=== PATIENT | female | born 1975 ===

== ENCOUNTER 2021-09-30 13:08 | Inpatient (IN) ==
[2021-09-30] MEDS ORDERED: LACTATED RINGERS 1,000 ML IV ONE (16:27)
[2021-09-30] MEDS ORDERED: GLUCAGON 1 MG VIAL IM PRN (16:29)
[2021-09-30] MEDS ORDERED: DEXTROSE 10% 250 ML BAG IV PRN (16:33)
[2021-09-30] MEDS: LABETALOL 200 MG TABLET PO SCH (17:29)
[2021-09-30 18:45] LABS: Protein/Creatinine Ratio,Urine 2.4 RATIO
[2021-09-30 18:53] LABS: Basophils % 0.3 % (0.0-0.8); Eosinophils % 0.5 % (0.00-10.9); Hematocrit 40.1 VOL% (35.7-47.0); Hemoglobin 13.5 GM/DL (12.0-16.0); Immature Granulocytes % 0.3 %; Immature Granulocytes Absolute 0.02 #; Lymphocytes # 2.1 10*3/uL (1.4-4.0); Lymphocytes % 33.7 % (21.3-54.2); Mean Corpuscular HGB Conc 33.7 GM/DL (32-36); Mean Corpuscular Volume 91.1 FL (87-102); Mean Platelet Volume 11.2 FL (9.6-12.0); Monocytes % 5.6 % (1.7-12.7); Neutrophils % 59.6 % (38.7-73.9); Platelet Count 127 T/CUMM (130-400); Red Cell Distribution Width 14.9 % (9.3-17.3); White Blood Count 6.1 T/CUMM (4-12)
[2021-09-30 19:17] LABS: Albumin 2.2 G/DL (3.4-5.0); Bilirubin,Direct 0.16 MG/DL (0.0-0.20); Bilirubin,Total 0.4 MG/DL (0.20-1.00); Calcium 8.8 MG/DL (8.5-10.1); Osmolality,Calculated 278.3 MOS/KG (273-304); Potassium 4.1 MMOL/L (3.5-5.1); Total Protein 6.5 G/DL (6.4-8.2); Uric Acid 5.9 MG/DL (2.6-6.0)
[2021-09-30 20:19] LABS: INR 0.9; PT Patient Result 10.4 SECS (10.5-12.0); Partial Thromboplastin Time 29.6 SECS (23.8-32.1)
[2021-09-30] MEDS: LACTATED RINGERS 1,000 ML IV SCH (20:23)
[2021-09-30] MEDS ORDERED: LABETALOL 100 MG TABLET PO SCH (21:00)
[2021-10-01] MEDS: LABETALOL 200 MG TABLET PO SCH ×2 (09:05→20:58)
[2021-10-01] MEDS ORDERED: NIFEdipine 10 MG CAPSULE PO ONE ×3 (09:26→09:54)
[2021-10-01] MEDS: LACTATED RINGERS 1,000 ML IV SCH (10:22)
[2021-10-01] MEDS ORDERED: ACETAMINOPHEN 500 MG TABLET PO PRN (17:07)
[2021-10-02] MEDS: LABETALOL 200 MG TABLET PO SCH ×2 (08:33→21:02)
[2021-10-02] MEDS ORDERED: NIFEdipine 10 MG CAPSULE PO ONE (19:48)
[2021-10-03] MEDS ORDERED: CITRIC ACID/SODIUM CITRATE 30 ML UDCUP PO ONE ×2 (06:00→07:30)
[2021-10-03] MEDS ORDERED: ceFAZolin 3,000 MG in SYRINGE 1 EACH IV ONE ×2 (06:00→07:30)
[2021-10-03] MEDS ORDERED: FAMOTIDINE 20 MG/2 ML VIAL IV ONE ×2 (06:00→07:30)
[2021-10-03] MEDS: LACTATED RINGERS 1,000 ML IV SCH (06:27)
[2021-10-03 06:52] LABS: Basophils % 0.3 % (0.0-0.8); Eosinophils % 0.7 % (0.00-10.9); Hematocrit 38.6 VOL% (35.7-47.0); Immature Granulocytes % 0.3 %; Immature Granulocytes Absolute 0.02 #; Lymphocytes # 2.1 10*3/uL (1.4-4.0); Mean Corpuscular HGB Conc 33.7 GM/DL (32-36); Mean Corpuscular Volume 91.3 FL (87-102); Mean Platelet Volume 10.9 FL (9.6-12.0); Monocytes % 6.2 % (1.7-12.7); Neutrophils % 56.5 % (38.7-73.9); Platelet Count 123 T/CUMM (130-400); Red Blood Count 4.23 MC/CUMM (3.8-5.5); White Blood Count 5.8 T/CUMM (4-12)
[2021-10-03 06:58] LABS: INR 0.9; PT Patient Result 10.4 SECS (10.5-12.0); Partial Thromboplastin Time 29.2 SECS (23.8-32.1)
[2021-10-03 07:31] LABS: Albumin 2.1 G/DL (3.4-5.0); Bilirubin,Direct 0.18 MG/DL (0.0-0.20); Bilirubin,Total 0.6 MG/DL (0.20-1.00); Calcium 8.2 MG/DL (8.5-10.1); Osmolality,Calculated 276.5 MOS/KG (273-304); Potassium 3.9 MMOL/L (3.5-5.1); Total Protein 6.6 G/DL (6.4-8.2)
[2021-10-03] MEDS ORDERED: OXYTOCIN 10 UNIT/ML VIAL IM ONE (07:35)
[2021-10-03] MEDS ORDERED: OXYTOCIN/LR 30 UNIT/1,000 ML BAG IV ONE ×2 (07:35→10:08)
[2021-10-03 07:38] LABS: Anisocytosis Slight; Macrocytosis Slight; Platelet Estimate Adequate
[2021-10-03] MEDS ORDERED: ceFAZolin 2,000 MG/50 ML DUPLEX IV ONE (08:08)
[2021-10-03] MEDS ORDERED: miSOPROStoL 200 MCG TABLET ONE (08:31)
[2021-10-03] MEDS ORDERED: TRANEXAMIC ACID 1,000 MG/10 ML VIAL ONE (08:31)
[2021-10-03] MEDS ORDERED: SODIUM CHLORIDE 0.9% 0 ML IV ONE (08:31)
[2021-10-03] MEDS ORDERED: OXYTOCIN/LR 0 UNIT/0 ML BAG IV ONE (08:31)
[2021-10-03] MEDS ORDERED: CARBOPROST TROMETHAMINE 250 MCG/ML AMP IM ONE (08:32)
[2021-10-03] MEDS ORDERED: BUPIVACAINE SPINAL 0.75% 2 ML AMP SPINAL ONE (08:49)
[2021-10-03] MEDS ORDERED: ONDANSETRON 4 MG/2 ML VIAL ONE (09:17)
[2021-10-03] MEDS ORDERED: PHENYLEPHRINE 1 MG/10 ML SYRINGE IV ONE (09:24)
[2021-10-03] MEDS ORDERED: MIDAZOLAM 2 MG/2 ML VIAL ONE (09:28)
[2021-10-03 09:37] LABS: Cord Arterial Blood HCO3 19.6 MMOL/L
[2021-10-03 09:40] LABS: Cord Venous Blood HCO3 20.8 MMOL/L; Cord Venous Blood PCO2 48.4 MMHG; Cord Venous Blood PO2 24.2
[2021-10-03 09:42] LABS: Bacteria,Urine Occasional /HPF (Few); Mucus,Urine Occasional /LPF (Occasional); RBC,Urine 1 /HPF (0-4); Squamous Epithelial Cell,Urine Occasional /HPF (0-10)
[2021-10-03 09:44] LABS: Protein,Urine 100 mg/dL (Negative); Urine Appearance Clear (Clear); Urine Color Yellow (Yellow)
[2021-10-03 09:45] LABS: Bilirubin,Urine Negative (Negative); Blood, Urine Negative (Negative); Glucose,Urine (UA) Negative (Negative); Ketones,Urine Negative (Negative); Nitrite,Urine Negative (Negative)
[2021-10-03] MEDS ORDERED: LABETALOL 20 MG/4 ML SYRINGE IV ONE (10:09)
[2021-10-03] MEDS ORDERED: CALCIUM CHLORIDE 1,000 MG/10 ML VIAL IV ONE (10:09)
[2021-10-03] MEDS ORDERED: DEXTROSE 10% 250 ML BAG IV PRN (10:41)
[2021-10-03] MEDS ORDERED: OXYTOCIN/LR 20 UNIT/1,000 ML BAG IV ONE (10:41)
[2021-10-03] MEDS ORDERED: ONDANSETRON 4 MG/2 ML VIAL IV PRN (10:41)
[2021-10-03] MEDS ORDERED: SIMETHICONE CHEW 80 MG TABLET PO PRN (10:41)
[2021-10-03] MEDS ORDERED: ACETAMINOPHEN 325 MG TABLET PO PRN (10:41)
[2021-10-03] MEDS ORDERED: RHO(D) IMMUNE GLOBULIN 300 MCG SYRINGE IM ONE (10:41)
[2021-10-03] MEDS ORDERED: MAGNESIUM HYDROXIDE SUSP 30 ML UDCUP PO PRN (10:41)
[2021-10-03] MEDS ORDERED: GLUCAGON 1 MG VIAL IM PRN (10:41)
[2021-10-03] MEDS ORDERED: LACTATED RINGERS 1,000 ML IV SCH (11:00)
[2021-10-03] MEDS: ACETAMINOPHEN 500 MG TABLET PO SCH ×2 (13:17→21:49)
[2021-10-03] MEDS: KETOROLAC 30 MG/1 ML VIAL IV SCH ×2 (15:50→21:47)
[2021-10-03 18:41] LABS: Basophils # 0.1 10*3/uL (0.0-0.2); Basophils % 0.4 % (0.0-0.8); Eosinophils % 0.1 % (0.00-10.9); Hematocrit 33.6 VOL% (35.7-47.0); Hemoglobin 11.4 GM/DL (12.0-16.0); Immature Granulocytes % 0.4 %; Immature Granulocytes Absolute 0.05 #; Lymphocytes # 1.9 10*3/uL (1.4-4.0); Lymphocytes % 14.1 % (21.3-54.2); Mean Corpuscular HGB Conc 33.9 GM/DL (32-36); Mean Corpuscular Volume 90.6 FL (87-102); Mean Platelet Volume 10.4 FL (9.6-12.0); Monocytes % 4.9 % (1.7-12.7); Neutrophils % 80.1 % (38.7-73.9); Platelet Count 127 T/CUMM (130-400); Red Blood Count 3.71 MC/CUMM (3.8-5.5); Red Cell Distribution Width 14.8 % (9.3-17.3); White Blood Count 13.5 T/CUMM (4-12)
[2021-10-03] MEDS: DOCUSATE SODIUM 100 MG CAPSULE PO SCH (21:34)
[2021-10-04] MEDS ORDERED: DEXTROSE 50% 25 GM/50 ML VIAL IV PRN (00:38)
[2021-10-04] MEDS ORDERED: GLUCAGON 1 MG VIAL IM PRN (00:38)
[2021-10-04] MEDS: KETOROLAC 30 MG/1 ML VIAL IV SCH (03:22)
[2021-10-04] MEDS: ACETAMINOPHEN 500 MG TABLET PO SCH ×2 (04:12→07:30)
[2021-10-04 06:01] LABS: Basophils % 0.3 % (0.0-0.8); Eosinophils # 0.1 10*3/uL (0.0-0.87); Eosinophils % 0.4 % (0.00-10.9); Hematocrit 33.1 VOL% (35.7-47.0); Immature Granulocytes % 0.3 %; Immature Granulocytes Absolute 0.04 #; Lymphocytes # 3.1 10*3/uL (1.4-4.0); Lymphocytes % 26.1 % (21.3-54.2); Mean Corpuscular HGB Conc 33.2 GM/DL (32-36); Mean Corpuscular Volume 91.2 FL (87-102); Mean Platelet Volume 10.9 FL (9.6-12.0); Monocytes % 4.1 % (1.7-12.7); Neutrophils % 68.8 % (38.7-73.9); Platelet Count 116 T/CUMM (130-400); Red Blood Count 3.63 MC/CUMM (3.8-5.5); Red Cell Distribution Width 14.9 % (9.3-17.3); White Blood Count 11.8 T/CUMM (4-12)
[2021-10-04 06:34] LABS: Platelet Estimate Adequate
[2021-10-04 06:35] LABS: Anisocytosis 1+
[2021-10-04] MEDS: INSULIN REGULAR 100 UNIT/ML SUBCUT SCH ×2 (08:05→16:30)
[2021-10-04] MEDS: MULTIVITAMIN (PRENATAL) TABLET PO SCH (08:36)
[2021-10-04] MEDS: DOCUSATE SODIUM 100 MG CAPSULE PO SCH ×2 (08:36→20:32)
[2021-10-04] MEDS: METOCLOPRAMIDE 10 MG TABLET PO SCH ×2 (08:36→16:10)
[2021-10-04] MEDS ORDERED: ONDANSETRON 4 MG TABLET PO PRN (08:40)
[2021-10-04] MEDS: IBUPROFEN 800 MG TABLET PO PRN (16:11)
[2021-10-05] MEDS: IBUPROFEN 800 MG TABLET PO PRN (00:01)
[2021-10-05] MEDS: INSULIN REGULAR 100 UNIT/ML SUBCUT SCH (07:30)
[2021-10-05] MEDS: DOCUSATE SODIUM 100 MG CAPSULE PO SCH (09:05)
[2021-10-05] MEDS: MULTIVITAMIN (PRENATAL) TABLET PO SCH (09:05)
[2021-10-05] MEDS: METOCLOPRAMIDE 10 MG TABLET PO SCH ×2 (09:05)
[2021-10-05 11:28] VITALS: BP 145/86
== END 2021-10-05 13:30 | disposition home or self-care (01) | DRG 540 ==
LOC: N.LDOUT 13:08 → N.LD 13:09 → N.OB 10-03 14:00
PROVIDERS: ADMIT Obstetrics & Gynecology; ATTEND Obstetrics & Gynecology
PROC: LDCSECT (ICD-10-PCS; 2021-10-03 08:00)

== ENCOUNTER 2021-11-08 10:27 | Inpatient (IN) ==
[2021-11-08] MEDS ORDERED: SODIUM CHLORIDE 0.9% 1,000 ML IV STA (11:23)
[2021-11-08] MEDS ORDERED: KETOROLAC 30 MG/1 ML VIAL IV STA (11:23)
[2021-11-08] MEDS ORDERED: LACTATED RINGERS 1,000 ML IV ONE (11:33)
[2021-11-08] MEDS ORDERED: ACETAMINOPHEN 500 MG TABLET PO PRN (11:34)
[2021-11-08] MEDS ORDERED: HYDROmorphone 1 MG/1 ML SYRINGE IV PRN (11:34)
[2021-11-08] MEDS ORDERED: ONDANSETRON 4 MG/2 ML VIAL IV PRN ×2 (11:34→15:27)
[2021-11-08] MEDS ORDERED: CLINDAMYCIN INJ 900 MG/50 ML PREMIX IV STA (11:34)
[2021-11-08 12:00] LABS: Basophils % 0.2 % (0.0-0.8); Eosinophils # 0.1 10*3/uL (0.0-0.87); Eosinophils % 0.4 % (0.00-10.9); Hematocrit 32.6 VOL% (35.7-47.0); Hemoglobin 10.4 GM/DL (12.0-16.0); Immature Granulocytes % 0.6 %; Immature Granulocytes Absolute 0.07 #; Lymphocytes # 1.5 10*3/uL (1.4-4.0); Mean Corpuscular HGB Conc 31.9 GM/DL (32-36); Mean Corpuscular Volume 89.6 FL (87-102); Mean Platelet Volume 9.5 FL (9.6-12.0); Monocytes # 0.6 10*3/uL (0.11-0.8); Monocytes % 4.7 % (1.7-12.7); Neutrophils % 82.1 % (38.7-73.9); Platelet Count 551 T/CUMM (130-400); Red Blood Count 3.64 MC/CUMM (3.8-5.5); Red Cell Distribution Width 13.9 % (9.3-17.3); White Blood Count 12.6 T/CUMM (4-12)
[2021-11-08] MEDS ORDERED: SODIUM CHLORIDE 0.9% 1,000 ML IV SCH (12:00)
[2021-11-08] MEDS ORDERED: CLINDAMYCIN INJ 600 MG/50 ML PREMIX IV SCH (12:00)
[2021-11-08 14:18] LABS: Calcium 8.8 MG/DL (8.5-10.1); Osmolality,Calculated 276.5 MOS/KG (273-304); Potassium 3.4 MMOL/L (3.5-5.1)
[2021-11-08] MEDS ORDERED: MAGNESIUM HYDROXIDE SUSP 30 ML UDCUP PO PRN (15:27)
[2021-11-08] MEDS ORDERED: DOCUSATE SODIUM 100 MG CAPSULE PO PRN (15:27)
[2021-11-08] MEDS ORDERED: ACETAMINOPHEN 325 MG TABLET PO PRN (15:27)
[2021-11-08] MEDS ORDERED: GLUCAGON 1 MG VIAL IM PRN (15:27)
[2021-11-08] MEDS ORDERED: IBUPROFEN 800 MG TABLET PO PRN (15:27)
[2021-11-08] MEDS ORDERED: BENZOCAINE/MENTHOL LOZENGE 18/BOX PO PRN (15:27)
[2021-11-08] MEDS ORDERED: BISACODYL 10 MG SUPP RECTAL PRN (15:27)
[2021-11-08] MEDS ORDERED: DEXTROSE 10% 250 ML BAG IV PRN (15:46)
[2021-11-08] MEDS ORDERED: metFORMIN 850 MG TABLET PO SCH (17:00)
[2021-11-08] MEDS: INSULIN REGULAR 100 UNIT/ML SUBCUT SCH (19:08)
[2021-11-08] MEDS: LACTATED RINGERS 1,000 ML IV SCH (19:20)
[2021-11-08] MEDS: CLINDAMYCIN INJ 900 MG/50 ML PREMIX IV SCH (20:41)
[2021-11-09] MEDS: LACTATED RINGERS 1,000 ML IV SCH (02:19)
[2021-11-09] MEDS: CLINDAMYCIN INJ 900 MG/50 ML PREMIX IV SCH (04:34)
[2021-11-09 06:08] LABS: Basophils % 0.3 % (0.0-0.8); Eosinophils # 0.1 10*3/uL (0.0-0.87); Eosinophils % 1.7 % (0.00-10.9); Hematocrit 27.7 VOL% (35.7-47.0); Hemoglobin 8.6 GM/DL (12.0-16.0); Immature Granulocytes % 0.5 %; Immature Granulocytes Absolute 0.03 #; Lymphocytes % 29.9 % (21.3-54.2); Mean Corpuscular Volume 90.8 FL (87-102); Mean Platelet Volume 9.4 FL (9.6-12.0); Monocytes # 0.3 10*3/uL (0.11-0.8); Monocytes % 4.7 % (1.7-12.7); Neutrophils % 62.9 % (38.7-73.9); Platelet Count 456 T/CUMM (130-400); Red Blood Count 3.05 MC/CUMM (3.8-5.5); White Blood Count 6.7 T/CUMM (4-12)
[2021-11-09] MEDS: INSULIN REGULAR 100 UNIT/ML SUBCUT SCH ×3 (06:34→15:41)
[2021-11-09 06:42] LABS: Platelet Estimate Increased
[2021-11-09 08:41] VITALS: BP 114/69
[2021-11-09] MEDS ORDERED: PANTOPRAZOLE 40 MG TABLET PO SCH (09:00)
== END 2021-11-09 14:30 | disposition home health service (06) | DRG 561 ==
LOC: N.ED 10:27 → N.3E 11:34
PROVIDERS: ADMIT Obstetrics & Gynecology; ATTEND Obstetrics & Gynecology